=== PATIENT | female | born 1980 | race Caucasian/White ===

== ENCOUNTER 2018-07-08 04:30 | Inpatient (IN) | payer MEDICAID ==
[2018-07-08] MEDS ORDERED: LACTATED RINGER'S 1,000 ML IV (05:34)
[2018-07-08] MEDS ORDERED: NA PHOSPHATE/BIPHOS 133 ML ENEMA PR (06:00)
[2018-07-08] MEDS ORDERED: LIDOCAINE 1% (MPF) 30 ML INJ INJ (06:00)
[2018-07-08] MEDS ORDERED: AMPICILLIN 2 GM/NS (PMX) 100 ML IV (06:00)
[2018-07-08] MEDS ORDERED: OXYTOCIN 30 UNITS/LR 500 ML IV ×3 (06:00→15:30)
[2018-07-08] MEDS ORDERED: METHYLERGONOVINE 0.2 MG INJ IM ×2 (06:00→15:30)
[2018-07-08] MEDS ORDERED: BUTORPHANOL 2 MG INJ IV (06:00)
[2018-07-08 06:53] LABS: ADD MAN DIFF? NO
[2018-07-08 06:55] LABS: WHITE BLOOD COUNT 10.3 10^3/ul (4.8-10.8)
[2018-07-08 06:55] LABS: BASOPHILS % 0.2 % (0.0-2.0); EOSINOPHILS # 0.1 10^3/ul (0.0-0.5); EOSINOPHILS % 0.7 % (0.0-7.0); HEMATOCRIT 35.6 % (37.0-47.0); HEMOGLOBIN 10.8 g/dl (12.0-16.0); LYMPHOCYTES # 2.1 10^3/ul (0.8-2.9); LYMPHOCYTES % 20.3 % (15.0-51.0); MEAN CORPUSCULAR HEMOGLOBIN 24.4 pg (29.0-33.0); MEAN CORPUSCULAR HGB CONC 30.3 g/dl (32.0-37.0); MEAN CORPUSCULAR VOLUME 80.4 fl (82.0-101.0); MEAN PLATELET VOLUME 12.2 fl (7.4-10.4); MONOCYTE # 0.7 10^3/ul (0.3-0.9); MONOCYTES % 6.5 % (0.0-11.0); NEUTROPHIL # 7.4 10^3/ul (1.6-7.5); NEUTROPHILS % 71.6 % (39.0-77.0); PLATELET COUNT 211 10^3/UL (140-415); RED BLOOD COUNT 4.43 10^6/ul (4.20-5.40); RED CELL DISTRIBUTION WIDTH 16.5 % (11.5-14.5)
[2018-07-08 07:28] LABS: PROTIME 12.2 Sec (11.9-14.9)
[2018-07-08 07:29] LABS: PARTIAL THROMBOPLASTIN TIME 23.6 Sec (23.0-35.0)
[2018-07-08] MEDS ORDERED: LIDOCAINE 1% (MPF) 30 ML INJ (07:45)
[2018-07-08] MEDS: OXYTOCIN 30 UNITS/LR 500 ML IV ×4 (08:05→15:14)
[2018-07-08] MEDS: IBUPROFEN 600 MG TAB PO ×3 (08:25→23:34)
[2018-07-08] MEDS: CARBOPROST 250 MCG INJ IM (08:47)
[2018-07-08] MEDS ORDERED: AMPICILLIN 1 GM/NS (PMX) 50 ML IV (10:00)
[2018-07-08] MEDS: MISOPROSTOL 200 MCG TAB PR (10:16)
[2018-07-08 10:20] LABS: ALANINE AMINOTRANSFERASE 15 IU/L (13-69); ALBUMIN 3.2 g/dl (3.3-4.9); ALKALINE PHOSPHATASE 194 IU/L (42-121); ANION GAP 10 (5-13); ASPARTATE AMINO TRANSFERASE 41 IU/L (15-46); BILIRUBIN,INDIRECT 0.3 mg/dl (0-1.1); BILIRUBIN,TOTAL 0.3 mg/dl (0.2-1.3); BLOOD UREA NITROGEN 10 mg/dl (7-20); CARBON DIOXIDE 20 mmol/L (21-31); CHLORIDE 108 mmol/L (97-110); CREATININE 0.55 mg/dl (0.44-1.00); Estimated GFR > 60 mL/min (>60); GLUCOSE 81 mg/dl (70-220); SODIUM 138 mmol/L (135-144); TOTAL PROTEIN 6.1 g/dl (6.1-8.1); URIC ACID 4.4 mg/dl (3.1-7.9)
[2018-07-08] MEDS: HYDROCODONE/APAP (5/325) TAB PO ×2 (10:36→15:33)
[2018-07-08 11:23] LABS: ADD UMIC YES; UR ASCORBIC ACID NEGATIVE (NEGATIVE); UR BACTERIA FEW /HPF (NONE SEEN); UR BILIRUBIN (Dip) NEGATIVE (NEGATIVE); UR BLOOD (Dip) 1+ mg/dL (NEGATIVE); UR CLARITY CLEAR (CLEAR); UR COLOR YELLOW (YELLOW); UR GLUCOSE (Dip) NEGATIVE (NEGATIVE); UR KETONES (Dip) 1+ mg/dL (NEGATIVE); UR LEUKOCYTE ESTERASE (Dip) NEGATIVE Leu/ul (NEGATIVE); UR MUCUS FEW /HPF (NONE SEEN); UR NITRITE (Dip) NEGATIVE (NEGATIVE); UR RBC 1 /HPF (0-5); UR SPECIFIC GRAVITY (Dip) 1.016 (1.003-1.030); UR TOTAL PROTEIN (Dip) NEGATIVE (NEGATIVE); UR UROBILINOGEN (Dip) NEGATIVE (NEGATIVE); UR WBC 1 /HPF (0-5)
[2018-07-08 15:19] LABS: RAPID PLASMA REAGIN NONREACTIVE (NR)
[2018-07-08] MEDS ORDERED: ACETAMINOPHEN 325 MG TAB PO ×2 (15:30)
[2018-07-08] MEDS ORDERED: CARBOPROST 250 MCG INJ IM (15:30)
[2018-07-08] MEDS ORDERED: HYDROCODONE/APAP (5/325) TAB PO ×3 (15:30)
[2018-07-08] MEDS ORDERED: OXYCODONE/ASPIRIN (4.88/325) TAB PO ×4 (15:30)
[2018-07-08] MEDS ORDERED: LANOLIN 7 GM TUBE TOP ×2 (15:30)
[2018-07-08] MEDS ORDERED: BENZOCAINE 20% 56 ML SPRAY TOP (15:30)
[2018-07-08] MEDS ORDERED: MISOPROSTOL 200 MCG TAB PR (15:30)
[2018-07-08] MEDS ORDERED: ONDANSETRON 4 MG INJ IV ×2 (15:30)
[2018-07-08] MEDS ORDERED: WITCH HAZEL/GLYCERIN PAD PR (15:30)
[2018-07-08] MEDS ORDERED: IBUPROFEN 600 MG TAB PO (18:00)
[2018-07-08] MEDS: SENNA/DOCUSATE NA (8.6MG/50MG) TAB PO (20:52)
[2018-07-08] MEDS ORDERED: SENNA/DOCUSATE NA (8.6MG/50MG) TAB PO (21:00)
[2018-07-08] MEDS: WITCH HAZEL/GLYCERIN PAD PR (23:35)
[2018-07-08] MEDS: BENZOCAINE 20% 56 ML SPRAY TOP (23:35)
[2018-07-09] MEDS: IBUPROFEN 600 MG TAB PO ×3 (05:50→17:48)
[2018-07-09 06:15] LABS: ADD MAN DIFF? NO
[2018-07-09 06:18] LABS: WHITE BLOOD COUNT 9.4 10^3/ul (4.8-10.8)
[2018-07-09 06:18] LABS: BASOPHILS % 0.3 % (0.0-2.0); EOSINOPHILS # 0.1 10^3/ul (0.0-0.5); HEMATOCRIT 27.1 % (37.0-47.0); HEMOGLOBIN 8.5 g/dl (12.0-16.0); LYMPHOCYTES # 1.9 10^3/ul (0.8-2.9); MEAN CORPUSCULAR HEMOGLOBIN 25.1 pg (29.0-33.0); MEAN CORPUSCULAR HGB CONC 31.4 g/dl (32.0-37.0); MEAN CORPUSCULAR VOLUME 80.2 fl (82.0-101.0); MEAN PLATELET VOLUME 11.6 fl (7.4-10.4); MONOCYTE # 0.6 10^3/ul (0.3-0.9); MONOCYTES % 5.9 % (0.0-11.0); NEUTROPHIL # 6.8 10^3/ul (1.6-7.5); NEUTROPHILS % 72.1 % (39.0-77.0); PLATELET COUNT 200 10^3/UL (140-415); RED BLOOD COUNT 3.38 10^6/ul (4.20-5.40); RED CELL DISTRIBUTION WIDTH 16.4 % (11.5-14.5)
[2018-07-09] MEDS: SENNA/DOCUSATE NA (8.6MG/50MG) TAB PO (11:13)
[2018-07-09 12:55] LABS: COLLECTION PERIOD 24 hrs
[2018-07-09 13:12] LABS: 24HR URINE TOTAL PROTEIN 203.5 mg/24hrs (42.0-225.0); VOLUME 1850 mls
[2018-07-10] MEDS: IBUPROFEN 600 MG TAB PO ×2 (00:08→06:03)
[2018-07-10] MEDS: SENNA/DOCUSATE NA (8.6MG/50MG) TAB PO ×2 (00:08→08:49)
[2018-07-10] MEDS ORDERED: MEASLES,MUMPS,RUBELLA VACCINE INJ SC* (09:00)
== END 2018-07-10 11:45 | disposition home or self-care (01) | DRG 807 ==
LOC: OBT 04:30 → PP1 07-09 18:12 → L-D 04:30 → OBT 05:00 → L-D 05:00
PROC: 10E0XZZ Delivery of Products of Conception, External Approach (ICD-10-PCS; principal; 2018-07-08)
DX: O62.3 Precipitate labor (principal); Z37.0 Single live birth; Z3A.39 39 weeks gestation of pregnancy
CPT/HCPCS: 80053; 81001; 84156; 84560; 85025; 85610; 85730; 86592; 86850; 86900; 86901; 99464

== ENCOUNTER 2018-07-15 13:29 | Emergency (ER) | payer MEDICAID ==
[2018-07-15] MEDS: CEFTRIAXONE 1 GM/50 ML (PMX) 50 ML IVPB (14:05)
[2018-07-15] MEDS: ACETAMINOPHEN 325 MG TAB PO (14:05)
[2018-07-15] MEDS: SODIUM CHLORIDE 0.9% 1L BAG IV* (14:14)
[2018-07-15 14:17] LABS: ADD MAN DIFF? NO
[2018-07-15 14:24] LABS: BASOPHILS % 0.3 % (0.0-2.0); EOSINOPHILS % 0.2 % (0.0-7.0); HEMATOCRIT 32.8 % (37.0-47.0); LYMPHOCYTES # 0.6 10^3/ul (0.8-2.9); LYMPHOCYTES % 3.9 % (15.0-51.0); MEAN CORPUSCULAR HEMOGLOBIN 24.5 pg (29.0-33.0); MEAN CORPUSCULAR HGB CONC 30.5 g/dl (32.0-37.0); MEAN CORPUSCULAR VOLUME 80.4 fl (82.0-101.0); MONOCYTE # 0.3 10^3/ul (0.3-0.9); NEUTROPHIL # 14.5 10^3/ul (1.6-7.5); NEUTROPHILS % 93.2 % (39.0-77.0); PLATELET COUNT 391 10^3/UL (140-415); RED BLOOD COUNT 4.08 10^6/ul (4.20-5.40); RED CELL DISTRIBUTION WIDTH 16.9 % (11.5-14.5)
[2018-07-15 14:24] LABS: WHITE BLOOD COUNT 15.6 10^3/ul (4.8-10.8)
[2018-07-15 14:38] LABS: ADD UMIC YES; UR ASCORBIC ACID NEGATIVE (NEGATIVE); UR BACTERIA FEW /HPF (NONE SEEN); UR BILIRUBIN (Dip) NEGATIVE (NEGATIVE); UR BLOOD (Dip) 3+ mg/dL (NEGATIVE); UR CLARITY SLIGHTLY CLOUDY (CLEAR); UR COLOR YELLOW (YELLOW); UR GLUCOSE (Dip) NEGATIVE (NEGATIVE); UR KETONES (Dip) NEGATIVE (NEGATIVE); UR LEUKOCYTE ESTERASE (Dip) 2+ Leu/ul (NEGATIVE); UR NITRITE (Dip) NEGATIVE (NEGATIVE); UR NONSQUAMOUS EPITHELIAL CELL 1 /HPF (NONE SEEN); UR RBC > 182 /HPF (0-5); UR SPECIFIC GRAVITY (Dip) 1.012 (1.003-1.030); UR TOTAL PROTEIN (Dip) NEGATIVE (NEGATIVE); UR UROBILINOGEN (Dip) NEGATIVE (NEGATIVE); UR WBC 93 /HPF (0-5)
[2018-07-15 14:43] LABS: ALANINE AMINOTRANSFERASE 42 IU/L (13-69); ALBUMIN 3.8 g/dl (3.3-4.9); ALBUMIN/GLOBULIN RATIO 1.26; ALKALINE PHOSPHATASE 130 IU/L (42-121); ANION GAP 10 (5-13); ASPARTATE AMINO TRANSFERASE 33 IU/L (15-46); BILIRUBIN,INDIRECT 0.5 mg/dl (0-1.1); BILIRUBIN,TOTAL 0.5 mg/dl (0.2-1.3); BLOOD UREA NITROGEN 13 mg/dl (7-20); CARBON DIOXIDE 23 mmol/L (21-31); CHLORIDE 104 mmol/L (97-110); CREATININE 0.65 mg/dl (0.44-1.00); Estimated GFR > 60 mL/min (>60); GLUCOSE 99 mg/dl (70-220); INR 0.92; PARTIAL THROMBOPLASTIN TIME 23.8 Sec (23.0-35.0); POTASSIUM 4.1 mmol/L (3.5-5.1); PROTIME 12.4 Sec (11.9-14.9); SODIUM 137 mmol/L (135-144); TOTAL PROTEIN 6.8 g/dl (6.1-8.1)
[2018-07-15 14:49] LABS: LACTIC ACID 2.1 mmol/L (0.5-2.0)
[2018-07-15 14:53] LABS: TROPONIN-I < 0.012 ng/ml (0.000-0.120)
[2018-07-15 16:48] LABS: LACTIC ACID 1.1 mmol/L (0.5-2.0)
== END 2018-07-15 17:39 | disposition home or self-care (01) ==
LOC: FTE 13:29
DX: O85 Puerperal sepsis (principal); O90.89 Other complications of the puerperium, not elsewhere classified; R10.33 Periumbilical pain; B96.89 Other specified bacterial agents as the cause of diseases classified elsewhere
CPT/HCPCS: 36415; 71045; 74176; 76856; 80053; 81001; 81025; 83605; 84484; 85025; 85610; 85730; 87040; 87086; 87400; 93005; 96361; 96365; 99285-25